=== PATIENT | male | born 1965 | race Hispanic/Latino ===

== ENCOUNTER 2018-05-07 21:03 | Observation (INO) | payer SELFPAY ==
[2018-05-07] MEDS ORDERED: NA CHLORIDE 0.9% 2,000 ML ONE (22:10)
[2018-05-07] MEDS ORDERED: FAMOTIDINE 20 MG/2 ML VIAL IV ONE (22:37)
[2018-05-07] MEDS ORDERED: ONDANSETRON 4 MG/2 ML VIAL ONE (22:37)
--- NOTE | 2018-05-07 22:39 | RAD REPORT ---
EXAM DESCRIPTION: RAD - Chest Single View - 05/07/2018 10:27 pm CLINICAL HISTORY: FEVER Chest pain. COMPARISON: No comparisons FINDINGS: Portable technique limits examination quality. The lungs are grossly clear. The heart is normal in size. No displaced fractures. IMPRESSION: No acute intrathoracic process suspected.
[2018-05-07 22:49] LABS: Absolute Lymphocytes (CBC) 0.6 K/uL (0.7-4.9); Absolute Monocytes 0.9 K/uL (0.1-1.3); Absolute Neutrophil 14.2 K/uL (1.8-8.0); Basophils % 0.1 % (0-1.3); Hematocrit 36.8 % (39.6-49.0); Lymphocytes % 3.8 % (15.3-44.8); MCH 32.2 pg (27.0-35.0); MCV 91.6 fL (80-100); MPV 8.8 fL (7.6-11.3); Monocytes % 5.9 % (3.3-12.3); RBC Red Blood Cell Count 4.02 M/uL (4.33-5.43)
[2018-05-07 22:56] LABS: Protime INR 1.13
[2018-05-07 23:20] LABS: Albumin 4.4 g/dL (3.4-5.0); Bilirubin Direct 0.2 mg/dL (0-0.2); Bilirubin Total 0.9 mg/dL (0.2-1.0); Protein, Total 8.1 g/dL (6.4-8.2)
[2018-05-07 23:31] LABS: C-Reactive Protein 25.7 mg/L (<3.00)
[2018-05-07 23:32] LABS: Potassium 2.8 mmol/L (3.5-5.1)
[2018-05-08 00:03] LABS: Blood Morphology Comment NOT SEEN (NOT SEEN); Platelet Estimate ADEQ; Urine White Blood Cell Casts OK
[2018-05-08] MEDS ORDERED: POTASSIUM 25 MEQ EFFERV TAB ONE (00:14)
[2018-05-08] MEDS ORDERED: KCL 20 MEQ/100 mL IVPB 20 MEQ/100 ML BAG IV ONE (00:14)
[2018-05-08 01:12] LABS: Urine Blood 2+ (NEG); Urine Glucose NEGATIVE (NEG); Urine Protein 1+ (NEG); Urine Specific Gravity 1.015 (1.005-1.030)
[2018-05-08 01:15] LABS: Urine Bacteria <20 /HPF (NONE SEEN); Urine Culture Reflex Order NOT NEEDED; Urine RBC 20-50 /HPF (NONE SEEN)
--- NOTE | 2018-05-08 01:46 | EDPHYS ---
Physician Documentation [facility] Name: Bruno Napoles JR. Age: 52 yrs Sex: Male : 1965 Arrival Date: 05/07/2018 Time: 21:05 Bed 2 Private MD: ED Physician Ian Huerta HPI: 05/07 23:00 This 52 yrs old Male presents to ER via Wheelchair with complaints of Altered cp Mental Status, Nausea/Vomiting, Weakness. 23:00 The patient presents with confusion. cp 23:00 Onset: The symptoms/episode began/occurred today. Possible causes: nausea/vomiting cp times 5 days. Associated signs and symptoms: Pertinent positives: weakness, Pertinent negatives: abdominal pain, chest pain, diaphoresis, diarrhea, headache, vomiting blood. Current symptoms: In the emergency department the patient's symptoms are unchanged from the initial presentation, despite home interventions. Patient's baseline: Neuro: alert and fully oriented, Motor: no deficits, Ambulation: walks without assistance, Speech: normal. Historical: - Allergies: 21:18 No Known Allergies; aj - Home Meds: 21:18 None [Active]; aj - PMHx: 21:18 None; aj - PSHx: 21:18 Right foot; aj - Immunization history:: Adult Immunizations up to date. - Social history:: Smoking status: Patient uses tobacco products, smokes one-half pack cigarettes per day. - Ebola Screening: : Patient negative for fever greater than or equal to 101.5 degrees Fahrenheit, and additional compatible Ebola Virus Disease symptoms Patient denies exposure to infectious person Patient denies travel to an Ebola-affected area in the 21 days before illness onset No symptoms or risks identified at this time. ROS: 23:05 Constitutional: Positive for poor PO intake, Negative for body aches, chills, fever. cp 23:05 Eyes: Negative for injury, pain, redness, and discharge. cp 23:05 ENT: Negative for drainage from ear(s), ear pain, sore throat, difficulty swallowing, cp difficulty handling secretions. 23:05 Cardiovascular: Negative for chest pain, edema, palpitations. 23:05 Respiratory: Negative for cough, shortness of breath, wheezing. 23:05 Abdomen/GI: Positive for nausea and vomiting, anorexia, Negative for abdominal pain, diarrhea, constipation, black/tarry stool, rectal bleeding. 23:05 Back: Negative for pain at rest, pain with movement, radiated pain. 23:05 : Negative for urinary symptoms. 23:05 Skin: Negative for cellulitis, rash. 23:05 Neuro: Positive for general weakness, Negative for altered mental status, dizziness, headache, loss of consciousness, syncope, near syncope. 23:05 All other systems are negative. cp Exam: 22:45 ECG was reviewed by the Attending Physician. cp 23:12 Constitutional: The patient appears in no acute distress, alert, awake, cp non-diaphoretic, non-toxic, well developed, well nourished. 23:12 Head/Face: Normocephalic, atraumatic. Eyes: Pupils equal round and reactive to light, cp extra-ocular motions intact. Lids and lashes normal. Conjunctiva and sclera are non-icteric and not injected. Cornea within normal limits. Periorbital areas with no swelling, redness, or edema. 23:12 ENT: External ear(s): are unremarkable, Ear canal(s): are normal, clear, TM's: dullness, bilaterally, Nose: is normal, Mouth: Lips: dry, Oral mucosa: pink and intact, dry, Posterior pharynx: is normal, airway is patent, no erythema, no exudate. 23:12 Neck: ROM/movement: is normal, is supple, without pain, no range of motions limitations, no meningismus, no nuchal rigidity, Lymph nodes: no appreciated lymphadenopathy. 23:12 Chest/axilla: Inspection: normal, Palpation: is normal, no crepitus, no tenderness. 23:12 Cardiovascular: Rate: normal, Rhythm: regular, Pulses: Pulses are 2+ in right radial artery and left radial artery. Heart sounds: murmur, not appreciated, rub, not appreciated, gallop, not appreciated, Edema: is not appreciated, JVD: is not appreciated. 23:12 Respiratory: the patient does not display signs of respiratory distress, Respirations: normal, no use of accessory muscles, no retractions, no splinting, no tachypnea, labored breathing, is not present, Breath sounds: are clear throughout, no decreased breath sounds, no stridor, no wheezing. 23:12 Abdomen/GI: Inspection: abdomen appears normal, Bowel sounds: active, all quadrants, Palpation: soft, in all quadrants, mild abdominal tenderness, in all quadrants, rebound tenderness, is not appreciated, voluntary guarding, is not appreciated, involuntary guarding, is not appreciated. 23:12 Back: CVA tenderness, is absent. 23:12 Musculoskeletal/extremity: Exam is negative for calf tenderness, decreased range of motion, deformity, injury. 23:12 Skin: cellulitis, is not appreciated, no rash present. 23:12 Neuro: Orientation: to person, place \T\ time. Mentation: lucid, able to follow commands, Cerebellar function: is grossly normal, Motor: moves all fours, strength is normal, Sensation: no obvious gross deficits. Vital Signs: 21:18 BP 119 / 69; Pulse 68; Resp 20; Temp 99.1; Pulse Ox 100% on R/A; Weight 63.5 kg; Height aj 5 ft. 5 in. (165.10 cm); 22:00 BP 138 / 84; Pulse 66; Resp 18; Pulse Ox 97% on R/A; lp1 22:45 BP 129 / 98; Pulse 65; Resp 18; Pulse Ox 100% on R/A; lp1 23:30 BP 122 / 69; Pulse 73; Resp 18; Pulse Ox 99% on R/A; lp1 05/08 00:00 BP 128 / 74; Pulse 76; Resp 20; Pulse Ox 99% on R/A; lp1 00:45 BP 126 / 72; Pulse 71; Resp 16; Pulse Ox 100% on R/A; lp1 01:30 BP 135 / 79; Pulse 65; Resp 14; Temp 99.7(O); Pulse Ox 100% on R/A; lp1 02:15 BP 132 / 80; Pulse 66; Resp 17; Pulse Ox 100% on R/A; lp1 03:04 BP 124 / 80; Pulse 65; Resp 13; Pulse Ox 100% on R/A; lp1 05/07 21:18 Body Mass Index 23.30 (63.50 kg, 165.10 cm) aj MDM: 05/07 22:25 Patient medically screened. cp 05/08 01:35 Data reviewed: vital signs, nurses notes, lab test result(s), EKG, radiologic studies, cp CT scan. 01:35 Test interpretation: by ED physician or midlevel provider: ECG. Response to treatment: cp the patient's symptoms have markedly improved after treatment, VSS. Nausea improved and vomiting resolved, and as a result, I will admit patient, for elevated troponin level and continued monitoring. 01:37 Physician consultation: Gricelda Tapia MD was called at 01:37, was contacted at 01:37, regarding admission, to the telemetry unit. patient's condition. 05/07 22:04 Order name: Amylase, Serum; Complete Time: 23:49 05/07 22:04 Order name: Basic Metabolic Panel; Complete Time: 23:49 05/07 23:49 Interpretation: Normal except: GLUC 127; BUN 19; GFR 89; K 2.8. cp 05/07 22:04 Order name: Blood Culture Adult (2) aa05/07 22:04 Order name: C-Reactive Protein; Complete Time: 23:49 aa05/07 22:04 Order name: CBC with Diff; Complete Time: 01:24 05/07 23:49 Interpretation: Normal except: WBC 15.7; RBC 4.02; HGB 12.9; HCT 36.8; LUCIANO% 90.2; LYM% cp 3.8; NEUT A 14.2; LYMA 0.6. 05/07 22:04 Order name: Ckmb; Complete Time: 23:49 05/07 22:04 Order name: CPK; Complete Time: 23:49 05/07 22:04 Order name: Lactate; Complete Time: 23:49 05/07 22:04 Order name: LFT's; Complete Time: 23:49 05/07 22:04 Order name: Lipase; Complete Time: 23:49 05/07 22:04 Order name: Procalcitonin; Complete Time: 23:49 05/07 23:50 Interpretation: Reviewed. cp 05/07 22:04 Order name: Protime (+inr); Complete Time: 23:49 05/07 22:04 Order name: Ptt, Activated; Complete Time: 23:49 05/07 22:04 Order name: Sed Rate; Complete Time: 01:24 05/07 22:04 Order name: Troponin (emerg Dept Use Only); Complete Time: 23:49 05/07 23:50 Interpretation: Abnormal: TROPED 0.07. cp 05/07 22:04 Order name: Chest Single View XRAY; Complete Time: 23:49 aa1 05/07 22:04 Order name: Cardiac monitoring; Complete Time: 22:30 aa1 05/07 23:02 Order name: CT Abd/Pelvis - W/Contrast: no oral contrast cp 05/07 23:51 Order name: Urine Microscopic Only; Complete Time: 01:24 cp 05/08 01:24 Interpretation: Normal except: URBC 20-50. cp 05/08 00:06 Order name: CBC Smear Scan EDMS 05/08 00:27 Order name: Urine Dipstick--Ancillary (enter results); Complete Time: 01:24 ms 05/08 01:24 Interpretation: Normal except: UKET 3+; UBLD 2+; UPROT 1+. cp 05/07 22:04 Order name: EKG - Nurse/Tech; Complete Time: 22:46 aa1 05/07 22:04 Order name: IV Saline Lock - Large Bore; Complete Time: 22:18 aa1 05/07 22:04 Order name: Labs collected and sent; Complete Time: 22:18 aa1 05/07 22:04 Order name: O2 Per Protocol; Complete Time: 22:18 aa1 05/07 22:04 Order name: O2 Sat Monitoring; Complete Time: 22:18 aa1 05/07 22:04 Order name: Urine Dipstick-Ancillary (obtain specimen); Complete Time: 00:29 aa1 EC/16 22:45 Rate is 61 beats/min. Rhythm is regular. KS interval is normal. QRS interval is normal. cp QT interval is normal. Interpreted by me. Reviewed by me. Administered Medications: 22:17 Drug: NS 0.9% (30 ml/kg) 30 ml/kg Route: IV; Rate: bolus; Site: left forearm; aj 22:40 Drug: Zofran 4 mg Route: IVP; Site: left forearm; lp1 23:00 Follow up: Response: Nausea is decreased lp1 22:40 Drug: Pepcid 20 mg Route: IVP; Site: left forearm; lp1 23:00 Follow up: Response: No adverse reaction lp1 23:30 Drug: NS 0.9% (30 ml/kg) 30 ml/kg Route: IV; Rate: bolus; Site: left forearm; lp1 05/08 02:12 Follow up: IV Status: Completed infusion; IV Intake: 2000ml lp1 00:23 Drug: Potassium Chloride 20 mEq Route: IV; Rate: calculated rate; Site: left forearm; lp1 02:13 Follow up: IV Status: Completed infusion; IV Intake: 100ml lp1 00:28 Drug: Potassium Effervescent Tablet 50 mEq Route: PO; lp1 00:32 Follow up: Patient unable to tolerate PO, vomited, Provider aware lp1 01:58 Drug: Aspirin Chewable Tablet 324 mg Route: PO; lp1 03:05 Follow up: Response: No adverse reaction lp1 01:58 Drug: Lovenox 40 mg Route: Sub-Q; Site: left lower abdomen; lp1 03:06 Follow up: Response: No adverse reaction lp1 Disposition: 07:27 Co-signature as Attending Physician, Ian Huerta MD I agree with the assessment and ervin plan of care. Disposition: 05/08/18 01:45 Hospitalization ordered by Gricelda Tapia for Observation. Preliminary diagnosis are Nausea and vomiting, Hypokalemia. - Bed requested for Telemetry/MedSurg (observation). - Status is Observation. lp1 - Condition is Stable. - Problem is new. - Symptoms have improved. UTI on Admission? No Signatures: Dispatcher [employer] EDMS Corie Dominguez RN RN mw Kern, Alissa RN RN [email or web address] Thuy Clark RN Ian Acosta MD MD cha Pena, Laura RN YARELI lp1 Ian Esqueda PA PA cp Corrections: (The following items were deleted from the chart) 05/07 22:48 22:04 Accucheck ordered. aa1 cc 05/08 00:24 05/07 23:51 [place] ordered. cp lp1 05/08 01:46 01:45 Hospitalization Ordered by Gricelda Tapia MD for Observation. Preliminary cp diagnosis is Nausea and vomiting; Hypokalemia. Bed requested for Telemetry/MedSurg (observation). Status is Observation. Condition is Stable. Problem is new. Symptoms have improved. UTI on Admission? No. cp 01:50 01:46 05/08/2018 01:45 Hospitalization Ordered by Gricelda Tapia MD for Observation. bushra Preliminary diagnosis is Nausea and vomiting; Hypokalemia. Bed requested for Telemetry/MedSurg (observation). Status is Observation. Condition is Stable. Problem is new. Symptoms have improved. UTI on Admission? No. cp 03:17 01:50 05/08/2018 01:45 Hospitalization Ordered by Gricelda Tapia MD for Observation. lp1 Preliminary diagnosis is Nausea and vomiting; Hypokalemia. Bed requested for Telemetry/MedSurg (observation). Status is Observation. Condition is Stable. Problem is new. Symptoms have improved. UTI on Admission? No. mw 05/09 02:06 05/08 23:05 Constitutional: Negative for body aches, chills, fever, poor PO intake, cp cp 05/09 02:06 05/08 23:05 Eyes: Negative for injury, pain, redness, and discharge, cp cp 05/09 02:06 05/08 23:05 ENT: Negative for drainage from ear(s), ear pain, sore throat, difficulty cp swallowing, difficulty handling secretions, cp 05/09 02:06 05/08 23:05 Cardiovascular: Negative for chest pain, edema, palpitations, cp cp 05/09 02:06 05/08 23:05 Respiratory: Negative for cough, shortness of breath, wheezing, cp cp 05/09 02:06 05/08 23:05 Neck: Negative for pain with movement, stiffness, cp cp 05/09 02:06 05/08 23:05 Abdomen/GI: Positive for nausea, vomiting, anorexia, Negative for abdominal cp pain, diarrhea, constipation, black/tarry stool, rectal bleeding, cp 05/09 02:06 05/08 23:05 Back: Negative for pain at rest, pain with movement, radiated pain, cp cp 05/09 02:06 05/08 23:05 : Negative for urinary symptoms, cp cp 05/09 02:06 05/08 23:05 MS/extremity: Negative for injury or acute deformity, decreased range of cp motion, paresthesias, cp 05/09 02:06 05/08 23:05 Neuro: Positive for general weakness, Negative for altered mental status, cp headache, seizure activity, speech changes, syncope, near syncope, visual changes, cp 05/09 02:06 05/08 23:05 All other systems are negative, cp cp
--- NOTE | 2018-05-08 01:46 | ER ---
Nurse's Notes [facility] Name: Bruno Napoles JR. Age: 52 yrs Sex: Male : 1965 Arrival Date: 05/07/2018 Time: 21:05 Bed 2 Private MD: Diagnosis: Nausea and vomiting;Hypokalemia Presentation: 05/07 21:16 Presenting complaint: Patient states: Reports N/V since Friday. Reports aj disorientation. Awake and alert to person, place and time. Transition of care: patient was not received from another setting of care. Onset of symptoms was May 04, 2018. Risk Assessment: Do you want to hurt yourself or someone else? Patient reports no desire to harm self or others. Initial Sepsis Screen: Does the patient meet any 2 criteria? No. Patient's initial sepsis screen is negative. Does the patient have a suspected source of infection? No. Patient's initial sepsis screen is negative. Care prior to arrival: None. 21:16 Method Of Arrival: Wheelchair aj 21:16 Acuity: SHEA 3 aj Triage Assessment: 21:18 General: Appears in no apparent distress. comfortable, Behavior is calm, cooperative, aj appropriate for age. Pain: Denies pain. Neuro: Level of Consciousness is awake, alert, obeys commands, Oriented to person, place, time, situation, Moves all extremities. Weakness Speech is normal, Facial symmetry appears normal, Intact. Respiratory: Airway is patent Respiratory effort is even, unlabored, Respiratory pattern is regular, symmetrical. GI: Reports nausea, vomiting. Derm: Skin is intact, is healthy with good turgor, Skin is pink, warm \T\ dry. normal. Historical: - Allergies: 21:18 No Known Allergies; aj - Home Meds: 21:18 None [Active]; aj - PMHx: 21:18 None; aj - PSHx: 21:18 Right foot; aj - Immunization history:: Adult Immunizations up to date. - Social history:: Smoking status: Patient uses tobacco products, smokes one-half pack cigarettes per day. - Ebola Screening: : Patient negative for fever greater than or equal to 101.5 degrees Fahrenheit, and additional compatible Ebola Virus Disease symptoms Patient denies exposure to infectious person Patient denies travel to an Ebola-affected area in the 21 days before illness onset No symptoms or risks identified at this time. Screenin:54 Abuse screen: Denies threats or abuse. Denies injuries from another. Nutritional lp1 screening: No deficits noted. Tuberculosis screening: No symptoms or risk factors identified. Fall Risk None identified. Assessment: 22:00 General: Appears uncomfortable, slender, Behavior is restless. Pain: Denies pain. lp1 Neuro: Level of Consciousness is awake, alert, obeys commands, Oriented to person, place, situation. Cardiovascular: Patient's skin is warm and dry. Respiratory: Respiratory effort is even, Respiratory pattern is regular, Breath sounds are clear bilaterally. GI: Abdomen is flat, Pt is actively vomiting clear fluid, Bowel sounds present X 4 quads. Reports nausea, vomiting, Patient currently denies constipation, diarrhea. : No signs and/or symptoms were reported regarding the genitourinary system. EENT: No signs and/or symptoms were reported regarding the EENT system. Derm: Skin is intact, Skin is dry, Skin is normal. Musculoskeletal: Circulation, motion, and sensation intact. 23:00 Reassessment: Nausea decreased at this time Patient states feeling better. lp1 05/08 00:00 Reassessment: Patient appears in no apparent distress at this time. No changes from lp1 previously documented assessment. Patient is alert, oriented x 3, equal unlabored respirations, skin warm/dry/pink. 01:00 Reassessment: Patient appears in no apparent distress at this time. Patient is alert, lp1 oriented x 3, equal unlabored respirations, skin warm/dry/pink. Patient resting, eyes closed, respirations unlabored. 02:00 Reassessment: Patient is alert, oriented x 3, equal unlabored respirations, skin lp1 warm/dry/pink. Patient states feeling better. Patient states symptoms have improved. Vital Signs: 05/07 21:18 BP 119 / 69; Pulse 68; Resp 20; Temp 99.1; Pulse Ox 100% on R/A; Weight 63.5 kg; Height aj 5 ft. 5 in. (165.10 cm); 22:00 BP 138 / 84; Pulse 66; Resp 18; Pulse Ox 97% on R/A; lp1 22:45 BP 129 / 98; Pulse 65; Resp 18; Pulse Ox 100% on R/A; lp1 23:30 BP 122 / 69; Pulse 73; Resp 18; Pulse Ox 99% on R/A; lp1 05/08 00:00 BP 128 / 74; Pulse 76; Resp 20; Pulse Ox 99% on R/A; lp1 00:45 BP 126 / 72; Pulse 71; Resp 16; Pulse Ox 100% on R/A; lp1 01:30 BP 135 / 79; Pulse 65; Resp 14; Temp 99.7(O); Pulse Ox 100% on R/A; lp1 02:15 BP 132 / 80; Pulse 66; Resp 17; Pulse Ox 100% on R/A; lp1 03:04 BP 124 / 80; Pulse 65; Resp 13; Pulse Ox 100% on R/A; lp1 05/07 21:18 Body Mass Index 23.30 (63.50 kg, 165.10 cm) aj ED Course: 05/07 21:05 Patient arrived in ED. ds1 21:18 Triage completed. aj 21:18 Arm band placed on right wrist. Patient placed in an exam room. aj 22:05 Inserted saline lock: 20 gauge in right forearm, using aseptic technique. Blood cc collected. 22:19 Inserted saline lock: 20 gauge in left forearm, using aseptic technique. Blood aj collected. 22:25 X-ray completed. Portable x-ray completed in exam room. Patient tolerated procedure bb2 well. 22:25 Ian Esqueda PA is PHCP. cp 22:25 Ian Huerta MD is Attending Physician. cp 22:26 Chest Single View XRAY In Process Unspecified. EDMS 22:29 Lien Hahn, YARELI is Primary Nurse. lp1 22:50 EKG done, by ED staff, reviewed by Ian OSORIO. lp1 22:55 Patient has correct armband on for positive identification. Placed in gown. Bed in low lp1 position. Side rails up X2. conveyor monitor on. Pulse ox on. NIBP on. 23:51 CT Abd/Pelvis - W/Contrast: no oral contrast In Process Unspecified. EDMS 23:58 CT completed. Patient tolerated procedure well. Patient moved to CT via stretcher. Patient moved back from CT. 05/08 00:24 Urine collected: clean catch specimen, clear. lp1 01:44 Gricelda Tapia MD is Hospitalizing Provider. cp 02:08 No provider procedures requiring assistance completed. Patient admitted, IV remains in lp1 place. Administered Medications: 05/07 22:17 Drug: NS 0.9% (30 ml/kg) 30 ml/kg Route: IV; Rate: bolus; Site: left forearm; aj 22:40 Drug: Zofran 4 mg Route: IVP; Site: left forearm; lp1 23:00 Follow up: Response: Nausea is decreased lp1 22:40 Drug: Pepcid 20 mg Route: IVP; Site: left forearm; lp1 23:00 Follow up: Response: No adverse reaction lp1 23:30 Drug: NS 0.9% (30 ml/kg) 30 ml/kg Route: IV; Rate: bolus; Site: left forearm; lp1 05/08 02:12 Follow up: IV Status: Completed infusion; IV Intake: 2000ml lp1 00:23 Drug: Potassium Chloride 20 mEq Route: IV; Rate: calculated rate; Site: left forearm; lp1 02:13 Follow up: IV Status: Completed infusion; IV Intake: 100ml lp1 00:28 Drug: Potassium Effervescent Tablet 50 mEq Route: PO; lp1 00:32 Follow up: Patient unable to tolerate PO, vomited, Provider aware lp1 01:58 Drug: Aspirin Chewable Tablet 324 mg Route: PO; lp1 03:05 Follow up: Response: No adverse reaction lp1 01:58 Drug: Lovenox 40 mg Route: Sub-Q; Site: left lower abdomen; lp1 03:06 Follow up: Response: No adverse reaction lp1 Intake: 05/07 23:30 IV: 1000ml (IV Fluid); Total: 1000ml. lp1 05/08 02:12 IV: 2000ml; Total: 3000ml. lp1 02:13 IV: 100ml; Total: 3100ml. lp1 Output: 00:24 Urine: 300ml (Voided); Total: 300ml. lp1 Outcome: 01:45 Decision to Hospitalize by Provider. cp 02:08 Condition: stable lp1 02:08 Instructed on the need for admit. 03:03 Admitted to Med/surg via wheelchair, room 231, with chart, Report called to yoel Martinez RN 03:17 Patient left the ED. lp1 Signatures: Dispatcher [employer] EDThuy Gallagher RN Juan Flor Demi dsXimena Rodriguez cc Lien Hahn RN RN lp1 Ian Esqueda PA PA cp Bock, Brittany bb2 Corrections: (The following items were deleted from the chart) 05/07 22:59 22:58 Inserted saline lock: 20 gauge in right forearm, using aseptic technique. Blood cc collected. cc 05/08 03:04 01:30 BP 135 / 79; Pulse 65bpm; Resp 14bpm; Pulse Ox 100% RA; lp1 lp1
[2018-05-08] MEDS ORDERED: ENOXAPARIN 40 MG/0.4 ML SQ ONE (01:47)
[2018-05-08] MEDS ORDERED: ASPIRIN 81 MG CHEWABLE TABLET ONE (01:47)
[2018-05-08] MEDS ORDERED: ACETAMINOPHEN 500 MG TAB PO PRN (02:38)
[2018-05-08] MEDS ORDERED: MORPHINE 2 MG/ML SYR IV PRN (02:38)
[2018-05-08] MEDS: NA CHLORIDE 0.9% 1,000 ML IV SCH ×4 (03:34→23:00)
[2018-05-08 06:20] LABS: Absolute Lymphocytes (CBC) 0.6 K/uL (0.7-4.9); Absolute Monocytes 1.1 K/uL (0.1-1.3); Absolute Neutrophil 15.4 K/uL (1.8-8.0); Basophils % 0.2 % (0-1.3); Hematocrit 33.6 % (39.6-49.0); Lymphocytes % 3.7 % (15.3-44.8); MCV 92.5 fL (80-100); MPV 8.6 fL (7.6-11.3); Monocytes % 6.5 % (3.3-12.3); RBC Red Blood Cell Count 3.63 M/uL (4.33-5.43)
[2018-05-08 06:40] LABS: BUN Blood Urea Nitrogen 15 mg/dL (7-18); Bicarbonate 27 mmol/L (21-32); Glucose Level 125 mg/dL (74-106); Potassium 3.1 mmol/L (3.5-5.1); Sodium Level 142 mmol/L (136-145)
[2018-05-08] MEDS ORDERED: SODIUM CHLORIDE 0.9% 10ML INJ IV PRN (07:09)
[2018-05-08] MEDS ORDERED: POTASSIUM CL 40 MEQ in NA CHLORIDE 0.9% 500 ML IV SCH (08:00)
--- NOTE | 2018-05-08 08:01 | RAD REPORT ---
EXAM DESCRIPTION: CTAbdomen Pelvis W Contrast - 05/08/2018 3:45 am CLINICAL HISTORY: Abdominal pain. n/v COMPARISON: No comparisons TECHNIQUE: Biphasic CT imaging of the abdomen and pelvis was performed with 100 ml non-ionic IV cont rast. All CT scans are performed using dose optimization technique as appropriate and may include automated exposure control or mA/KV adjustment according to patient size. FINDINGS: The lung bases are clear. The liver, spleen, pancreas, adrenal glands and right kidney are within normal limits. Mild prominenc e of the left renal pelvis probably due to crossing vessel the level of the left UPJ. No bowel obstruction, free air, free fluid or abscess. The appendix is normal. No evidence of signi ficant lymphadenopathy. No suspicious bony findings. Small fat containing left inguinal hernia. IMPRESSION: No acute intra-abdominal or pelvic finding.
[2018-05-08] MEDS: ONDANSETRON 4 MG/2 ML VIAL IV PRN ×2 (08:16→12:04)
[2018-05-08] MEDS: PANTOPRAZOLE 40 MG INJ IVP SCH ×3 (08:17→21:13)
[2018-05-08] MEDS: KCL 20 MEQ/100 mL IVPB 20 MEQ/100 ML BAG IV SCH ×2 (08:20→12:00)
--- NOTE | 2018-05-08 13:49 | P.HP ---
Certification for Inpatient Patient admitted to: Observation With expected LOS: <2 Midnights Patient will require the following post-hospital care: None Practitioner: I am a practitioner with admitting privileges, knowledge of patient current condition, hospital course, and medical plan of care. Services: Services provided to patient in accordance with Admission requirements found in Title 42 Section 412.3 of the Code of Federal Regulations Patient History Date of Service: 05/08/18 Reason for admission: intractable nausea and vomiting History of Present Illness: Patient is a 52-year-old gentleman who came into the hospital with intractable nausea and vomiting. Patient has been having weakness and vomiting for the last 24 hr. He has been feeling weak and fatigued. In the emergency room he was found to have significant hypokalemia. He was having some abdominal pain. However he is currently feeling much better. He denies any diarrhea. The symptoms just started over the last 24 hr. He has been given aggressive IV hydration and antiemetics in the E R. He is slightly lethargic. He will be admitted to the hospital for further evaluation. Allergies No Known Allergies Allergy (Verified 05/08/18 02:06) Home Medications: Multivit,Ther Iron,Ca,FA & Min [Centrum Tablet*] 1 tab PO DAILY 05/08/18 - Past Medical/Surgical History Has patient received pneumonia vaccine in the past: No Diabetic: No Past Medical History: Patient denies medical history Past Surgical History: Patient denies surgical history - Family History Father Family History: Reviewed- Non-Contributory - Social History Smoking Status: Former smoker Alcohol use: No CD- Drugs: No Caffeine use: Yes Place of Residence: Home Review of Systems 10-point ROS is otherwise unremarkable Physical Examination - Vital Signs Temperature: 99.1 F Blood Pressure: 133/64 Pulse: 56 Respirations: 16 Pulse Ox (%): 99 - Physical Exam General: Alert, In no apparent distress, Oriented x3 HEENT: Atraumatic, PERRLA, Mucous membr. moist/pink, EOMI, Sclerae nonicteric Neck: Supple, 2+ carotid pulse no bruit, No LAD, Without JVD or thyroid abnormality Respiratory: Clear to auscultation bilaterally, Normal air movement Cardiovascular: Regular rate/rhythm, Normal S1 S2, No murmurs Gastrointestinal: Normal bowel sounds, Soft and benign, Non-distended, No tenderness Musculoskeletal: No clubbing, No swelling, No tenderness Integumentary: No rashes Neurological: Normal gait, Normal speech, Normal strength at 5/5 x4 extr, Normal tone, Sensation intact, Cranial nerves 3-12 intact, Normal affect Lymphatics: No axilla or inguinal lymphadenopathy - Studies Laboratory Data (last 24 hrs) 05/07/18 22:15: PT 13.4 H, INR 1.13, APTT 33.2 05/07/18 22:15: WBC 15.7 H, Hgb 12.9 L, Hct 36.8 L, Plt Count 308 05/07/18 22:15: Sodium 140, Potassium 2.8 L*, BUN 19 H, Creatinine 0.90, Glucose 127 H, Total Bilirubin 0.9, AST 24, ALT 37, Alkaline Phosphatase 60, Amylase 83, Lipase 65 L Assessment & Plan - Problems (Diagnosis) (1) Abdominal pain Current Visit: Yes Status: Acute (2) Intractable nausea and vomiting Current Visit: Yes Status: Acute (3) Hypokalemia Current Visit: Yes Status: Acute - Plan Plan: 1. IV hydration 2. Antiemetics as needed 3. Advance diet if tolerated 4. Out of bed and ambulate 5. possible discharge home if symptoms resolve. He could have had a viral gastroenteritis that causes symptoms which are improved. At this time patient is clinically doing much better and possible discharge home in 24 hr. - Advance Directives Does patient have a Living Will: No Does patient have a Durable POA for Healthcare: No - Code Status/Comfort Care Code Status Assessed: Yes Code Status: Full Code Critical Care: No Time Spent Managing PTS Care (In Minutes): 50
--- NOTE | 2018-05-08 17:15 | EKG ---
Test Date: 2018-05-07 Test Time: 22:39:58 Supervisor [employer]: JAMEEL MEASUREMENT RESULTS: Intervals: Rate: 61 ID: [id number] QRSD: 80 QT: 456 QTc: 459 [place]: P: 41 ID: [id number] QRS: 69 T: 31 INTERPRETIVE STATEMENTS: Sinus rhythm with short ID Otherwise normal ECG No previous ECG available for comparison Electronically Signed On 05-08-18 17:11:25 CDT by Thierry Hill
[2018-05-08 17:16] LABS: Barbiturates NEGATIVE (NEGATIVE); Benzodiazepines NEGATIVE (NEGATIVE); Cocaine NEGATIVE (NEGATIVE); METHAMPHETAM NEGATIVE (NEGATIVE); Methadone POSITIVE (NEGATIVE); Opiates NEGATIVE (NEGATIVE); Phencyclidine NEGATIVE (NEGATIVE); THC Cannibis POSITIVE (NEGATIVE)
[2018-05-08] MEDS: NYSTATIN 500,000 UNIT/5 ML UDC PO SCH (21:14)
[2018-05-09 05:36] LABS: Absolute Lymphocytes (CBC) 0.8 K/uL (0.7-4.9); Absolute Monocytes 0.9 K/uL (0.1-1.3); Basophils % 0.1 % (0-1.3); Eosinophils % 0.1 % (0-4.4); Hematocrit 31.4 % (39.6-49.0); Lymphocytes % 7.1 % (15.3-44.8); MCH 32.5 pg (27.0-35.0); MCV 92.5 fL (80-100); MPV 8.6 fL (7.6-11.3); Monocytes % 7.6 % (3.3-12.3)
[2018-05-09 05:54] LABS: ALT/SGPT 49 U/L (12-78); AST/SGOT 26 U/L (15-37); Albumin 3.4 g/dL (3.4-5.0); Alkaline Phosphatase 48 U/L (45-117); BUN Blood Urea Nitrogen 11 mg/dL (7-18); Bicarbonate 26 mmol/L (21-32); Bilirubin Total 0.5 mg/dL (0.2-1.0); Glucose Level 102 mg/dL (74-106); Protein, Total 6.3 g/dL (6.4-8.2); Sodium Level 139 mmol/L (136-145)
[2018-05-09 06:20] LABS: Blood Morphology Comment NOT SEEN (NOT SEEN); Platelet Estimate ADEQ; Urine White Blood Cell Casts OK
[2018-05-09] MEDS: NA CHLORIDE 0.9% 1,000 ML IV SCH ×2 (06:57→17:57)
[2018-05-09] MEDS: METHADONE HCL 10 MG TAB PO SCH (08:30)
[2018-05-09] MEDS: PANTOPRAZOLE 40 MG INJ IVP SCH ×2 (08:31→20:55)
[2018-05-09] MEDS: NYSTATIN 500,000 UNIT/5 ML UDC PO SCH ×2 (08:31→20:55)
--- NOTE | 2018-05-09 15:15 | P.PN ---
Subjective Date of Service: 05/09/18 Chief Complaint: intractable nausea and vomiting Subjective: No C/O voiced, Tolerating diet, Ambulating, Improving, Working w/ PT , Doing well Review of Systems General: As per HPI Physical Examination - Vital Signs Temperature: 99.1 F Blood Pressure: 149/78 Pulse: 52 Respirations: 18 Pulse Ox (%): 97 - Physical Exam General: Alert, In no apparent distress HEENT: Atraumatic, PERRLA, EOMI Neck: Supple, JVD not distended Respiratory: Clear to auscultation bilaterally, Normal air movement Cardiovascular: Regular rate/rhythm, Normal S1 S2 Gastrointestinal: Normal bowel sounds, No tenderness Musculoskeletal: No tenderness Integumentary: No rashes Neurological: Normal speech, Normal tone, Normal affect Lymphatics: No axilla or inguinal lymphadenopathy - Studies Medications List Reviewed: Yes Assessment & Plan - Problems (Diagnosis) (1) Viral gastroenteritis Current Visit: Yes Status: Acute Plan: Viral Gastroenteritis causing N/V -IV fluids for now -Improving today -Elevated ESR and CRP - HIV negative, Hepatitis Pending -WBC trending down (2) Hypokalemia Current Visit: Yes Status: Acute Plan: Hypokalemia 2.2 to N/V -Replace per protocol (3) Intractable nausea and vomiting Current Visit: Yes Status: Acute Plan: Improving but still nauseous. 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
[2018-05-10] MEDS: NA CHLORIDE 0.9% 1,000 ML IV SCH (01:35)
[2018-05-10] MEDS: NYSTATIN 500,000 UNIT/5 ML UDC PO SCH (09:33)
[2018-05-10] MEDS: METHADONE HCL 10 MG TAB PO SCH (09:34)
[2018-05-10] MEDS: PANTOPRAZOLE 40 MG INJ IVP SCH (09:34)
--- NOTE | 2018-05-10 12:09 | P.DS ---
Admission Date: 05/08/18 Discharge Date: 05/10/18 Disposition: ROUTINE DISCHARGE Discharge Condition: GOOD Reason for Admission: intractable nausea and vomiting - Problems (1) Viral gastroenteritis Current Visit: Yes Status: Acute (2) Hypokalemia Current Visit: Yes Status: Acute (3) Intractable nausea and vomiting Current Visit: Yes Status: Acute Qualifiers: Vomiting type: unspecified Qualified Code(s): R11.2 - Nausea with vomiting , unspecified (4) Drug abuse Current Visit: Yes Status: Acute Brief History of Present Illness: Patient is a 52-year-old gentleman who came into the hospital with intractable nausea and vomiting. Patient has been having weakness and vomiting for the last 24 hr. He has been feeling weak and fatigued. In the emergency room he was found to have significant hypokalemia. He was having some abdominal pain. However he is currently feeling much better. He denies any diarrhea. The symptoms just started over the last 24 hr. He has been given aggressive IV hydration and antiemetics in the E R. He is slightly lethargic. He will be admitted to the hospital for further evaluation. Hospital Course: Overall renal status remained stable The patient initially admitted to the hospital for nausea vomiting and abdominal pain was found to have viral gastroenteritis. Patient was kept on IV fluids and IV Zofran here in the hospital. Had marked improvement in his symptoms. Patient is also had a UDS done here in the hospital which was positive for methadone and THC. Patient methadone dose was restarted here in the hospital. Patient was educated extensively on smoking marijuana and having abstinence from it. Patient was then discharged home under stable condition once he was able to ambulate and tolerate his diet. Patient's nausea vomiting abdominal pain was most likely secondary to viral gastroenteritis versus THC use. Patient was notified of this and educated extensively on THC abstinence and agreed with the plan and thus was discharged home under stable condition. Vital Signs/Physical Exam: Temp Pulse Resp BP Pulse Ox 99.6 F 56 17 148/79 H 96 05/10/18 08:00 05/10/18 08:00 05/10/18 08:00 05/10/18 08:00 05/10/18 08:00 General: Alert, In no apparent distress HEENT: Atraumatic, PERRLA, EOMI Neck: Supple, JVD not distended Respiratory: Clear to auscultation bilaterally, Normal air movement Cardiovascular: Regular rate/rhythm, Normal S1 S2 Gastrointestinal: Normal bowel sounds, No tenderness Musculoskeletal: No tenderness Integumentary: No rashes Neurological: Normal speech, Normal tone, Normal affect Lymphatics: No axilla or inguinal lymphadenopathy Laboratory Data at Discharge: WBC 11.8 K/uL (4.3-10.9) H D 05/09/18 05:00 Hgb 11.1 g/dL (13.6-17.9) L 05/09/18 05:00 Hct 31.4 % (39.6-49.0) L 05/09/18 05:00 Plt Count 221 K/uL (152-406) 05/09/18 05:00 PT 13.4 SECONDS (9.5-12.5) H 05/07/18 22:15 INR 1.13 05/07/18 22:15 APTT 33.2 SECONDS (24.3-36.9) 05/07/18 22:15 Sodium 139 mmol/L (136-145) 05/09/18 05:00 Potassium 3.0 mmol/L (3.5-5.1) L 05/09/18 05:00 BUN 11 mg/dL (7-18) 05/09/18 05:00 Creatinine 0.60 mg/dL (0.55-1.3) 05/09/18 05:00 Glucose 102 mg/dL (74-106) 05/09/18 05:00 Total Bilirubin 0.5 mg/dL (0.2-1.0) 05/09/18 05:00 AST 26 U/L (15-37) 05/09/18 05:00 ALT 49 U/L (12-78) 05/09/18 05:00 Alkaline Phosphatase 48 U/L (45-117) 05/09/18 05:00 Troponin I 0.02 ng/mL (0.0-0.045) 05/09/18 07:03 Amylase 83 U/L (25-115) 05/07/18 22:15 Lipase 65 U/L (73-393) L 05/07/18 22:15 Home Medications: Multivit,Ther Iron,Ca,FA & Min [Centrum Tablet*] 1 tab PO DAILY 05/08/18 Patient Discharge Instructions: Please f.u with PCP in 1 to 2 weeks post discharge Diet: Regular Activity: Ad gerri
[2018-05-10 19:32] LABS: HBsAG Nonreactive (Nonreactive); Hepatitis A IgM Antibody Nonreactive
--- NOTE | 2018-05-11 07:55 | ECHO ---
HEIGHT: 5 ft 5 in WEIGHT: 121 lb 3.2 oz DATE OF STUDY: 05/08/[address]: Gricelda Tapia MD 2-DIMENSIONAL: YES M.MODE: YES DOPPLER: YES COLOR FLOW: YES TDS: NO PORTABLE: NO DEFINITY: NO BUBBLE STUDY: NO DIAGNOSIS: ELEVATED TROPONIN CARDIAC HISTORY: CATHERIZATION: NO SURGERY: NO PROSTHETIC VALVE: NO PACEMAKER: NO MEASUREMENTS (cm) DIASTOLIC (NORMALS) SYSTOLIC (NORMALS) IVSd 0.8 (0.6-1.2) LA Diam 3.7 (1.9-4.0) LVEF 62% LVIDd 3.8 (3.5-5.7) LVIDs 2.6 (2.0-3.5) %FS 33% LVPWd 0.8 (0.6-1.2) Ao Diam 2.8 (2.0-3.7) 2 DIMENSIONAL ASSESSMENT: RIGHT ATRIUM: NORMAL LEFT ATRIUM: NORMAL RIGHT VENTRICLE: NORMAL LEFT VENTRICLE: NORMAL TRICUSPID VALVE: NORMAL MITRAL VALVE: NORMAL PULMONIC VALVE: NORMAL AORTIC VALVE: NORMAL PERICARDIAL EFFUSION: NONE AORTIC ROOT: NORMAL LEFT VENTRICULAR WALL MOTION: NORMAL DOPPLER/COLOR FLOW: NORMAL COMMENTS: NORMAL 2D ECHOCARDIOGRAM WITH DOPPLER. NO WALL MOTION ABNORMALITY. NO EFFUSION. TECHNOLOGIST: Sally JACKSON
== END 2018-05-10 15:39 | disposition home or self-care (01) ==
LOC: ER 21:03 → ERHOLD 05-08 02:22 → 2ND 05-08 03:04
PROVIDERS: ADMIT Hospitalist; ATTEND Hospitalist
DX: A08.4 Viral intestinal infection, unspecified (principal); E87.6 Hypokalemia; F12.10 Cannabis abuse, uncomplicated
CPT/HCPCS: 36415; 71045; 74177; 80048; 80053; 80074; 80076; 80307; 81003; 81015; 82150; 82550; 82553; 83605; 83690; 84145; 84484; 85025; 85610; 85652; 85730; 86140; 87040; 87205; 93005; 93306; 96365; 96366; 96372; 96375; 99285; C9113; G0378; G0433; J1650; J2270; J2405; J7030; Q9967

== ENCOUNTER 2018-11-09 10:59 | Emergency (ER) | payer SELFPAY ==
[2018-11-09 12:30] LABS: Absolute Lymphocytes (CBC) 0.6 K/uL (0.7-4.9); Absolute Monocytes 1.1 K/uL (0.1-1.3); Absolute Neutrophil 20.1 K/uL (1.8-8.0); Basophils % 0.2 % (0-1.3); Hematocrit 43.2 % (39.6-49.0); MPV 8.2 fL (7.6-11.3); RBC Red Blood Cell Count 4.84 M/uL (4.33-5.43)
[2018-11-09] MEDS ORDERED: ONDANSETRON 4 MG/2 ML VIAL ONE (12:46)
[2018-11-09] MEDS ORDERED: NA CHLORIDE 0.9% 1,000 ML ONE ×2 (12:47→14:06)
[2018-11-09 12:54] LABS: Blood Morphology Comment NOT SEEN (NOT SEEN); Platelet Estimate ADEQ; Urine White Blood Cell Casts OK
[2018-11-09 14:05] LABS: Albumin 4.6 g/dL (3.4-5.0); Bilirubin Direct 0.2 mg/dL (0-0.2); Bilirubin Total 0.4 mg/dL (0.2-1.0); Potassium 3.6 mmol/L (3.5-5.1); Protein, Total 8.1 g/dL (6.4-8.2)
--- NOTE | 2018-11-09 14:31 | EDPHYS ---
Physician Documentation [facility] Name: Bruno Napoles JR. Age: 52 yrs Sex: Male : 1965 Arrival Date: 11/09/2018 Time: 11:00 Bed 15 Private MD: None, None ED Physician Alfred Farrell HPI: 11/09 16:45 This 52 yrs old Male presents to ER via Ambulatory with complaints of Vomiting.gs 16:45 Onset: The symptoms/episode began/occurred 2 day(s) ago. Possible causes: unknown. The gs symptoms are aggravated by nothing. The symptoms are alleviated by nothing. Associated signs and symptoms: Pertinent negatives: abdominal pain, fever, GI bleeding. Severity of symptoms: At their worst the symptoms were severe in the emergency department the symptoms have improved markedly. The patient has experienced similar episodes in the past, a few times. The patient has not recently seen a physician. Historical: - Allergies: 11:33 No Known Allergies; aa5 - PMHx: 11:33 None; aa5 - PSHx: 11:33 Right foot; aa5 - Immunization history:: Flu vaccine is not up to date. - Social history:: Smoking status: Patient/guardian denies using tobacco. - Ebola Screening: : No symptoms or risks identified at this time. ROS: 16:45 All other systems are negative. gs Exam: 16:45 Head/Face: Normocephalic, atraumatic. Eyes: Pupils equal round and reactive to light, gs extra-ocular motions intact. Lids and lashes normal. Conjunctiva and sclera are non-icteric and not injected. Cornea within normal limits. Periorbital areas with no swelling, redness, or edema. ENT: Nares patent. No nasal discharge, no septal abnormalities noted. Tympanic membranes are normal and external auditory canals are clear. Oropharynx with no redness, swelling, or masses, exudates, or evidence of obstruction, uvula midline. Mucous membranes moist. Neck: Trachea midline, no thyromegaly or masses palpated, and no cervical lymphadenopathy. Supple, full range of motion without nuchal rigidity, or vertebral point tenderness. No Meningismus. Chest/axilla: Normal chest wall appearance and motion. Nontender with no deformity. No lesions are appreciated. Cardiovascular: Regular rate and rhythm with a normal S1 and S2. No gallops, murmurs, or rubs. Normal PMI, no JVD. No pulse deficits. Respiratory: Lungs have equal breath sounds bilaterally, clear to auscultation and percussion. No rales, rhonchi or wheezes noted. No increased work of breathing, no retractions or nasal flaring. Abdomen/GI: Soft, non-tender, with normal bowel sounds. No distension or tympany. No guarding or rebound. No evidence of tenderness throughout. Back: No spinal tenderness. No costovertebral tenderness. Full range of motion. Skin: Warm, dry with normal turgor. Normal color with no rashes, no lesions, and no evidence of cellulitis. MS/ Extremity: Pulses equal, no cyanosis. Neurovascular intact. Full, normal range of motion. Neuro: Awake and alert, GCS 15, oriented to person, place, time, and situation. Cranial nerves II-XII grossly intact. Motor strength 5/5 in all extremities. Sensory grossly intact. Cerebellar exam normal. Normal gait. 16:45 Constitutional: The patient appears alert, awake. Vital Signs: 11:33 BP 127 / 89; Pulse 90; Resp 18 S; Temp 98.4(TE); Pulse Ox 98% on R/A; Weight 63.5 kg aa5 (R); Height 5 ft. 4 in. (162.56 cm) (R); Pain 0/10; 13:48 BP 122 / 88; Pulse 80; Resp 16; Temp 98.4; Pulse Ox 99% on R/A; Pain 0/10; ls4 11:33 Body Mass Index 24.03 (63.50 kg, 162.56 cm) aa5 MDM: 11:56 Patient medically screened. gs 16:45 Differential diagnosis: gastritis, pancreatitis, gastroenteritis. Data reviewed: vital gs signs, nurses notes, lab test result(s). Counseling: I had a detailed discussion with the patient and/or guardian regarding: the historical points, exam findings, and any diagnostic results supporting the discharge/admit diagnosis, lab results, the need for outpatient follow up. Response to treatment: the patient's symptoms have markedly improved after treatment, the patient's symptoms have resolved after treatment, patient is well hydrated. and as a result, I will discharge patient. 11/09 11:57 Order name: Basic Metabolic Panel; Complete Time: 14:27 11/09 11:57 Order name: CBC with Diff; Complete Time: 13:13 11/09 11:57 Order name: Hepatic Function; Complete Time: 14:27 11/09 11:57 Order name: Lipase; Complete Time: 14:27 11/09 12:35 Order name: CBC Smear Scan; Complete Time: 13:13 [facility] 11/09 11:57 Order name: IV Saline Lock; Complete Time: 12:30 11/09 11:57 Order name: Labs collected and sent; Complete Time: 12:30 11/09 12:34 Order name: Misc. Order: recollect labs; Complete Time: 13:39 ss Administered Medications: 12:10 Drug: Zofran 4 mg Route: IVP; Site: left wrist; ls4 12:40 Follow up: Response: No adverse reaction; Marked relief of symptoms ls4 13:45 Follow up: Response: No adverse reaction; Marked relief of symptoms ls4 12:10 Drug: NS 0.9% 1000 ml Route: IV; Rate: 1 bolus; Site: left wrist; ls4 13:30 Follow up: IV Status: Completed infusion; IV Intake: 1000ml ls4 14:16 Drug: NS 0.9% 1000 ml Route: IV; Rate: 1 bolus; Site: left wrist; ls4 15:20 Follow up: IV Status: Completed infusion; IV Intake: 1000ml ls4 Disposition: 11/09/18 14:30 Discharged to Home. Impression: Vomiting, Dehydration. - Condition is Stable. - Discharge Instructions: Dehydration, Adult, Nausea and Vomiting, Adult. - Prescriptions for Zofran 4 mg Oral Tablet - take 1 tablet by ORAL route every 12 hours As needed; 10 tablet. - Medication Reconciliation Form, Thank You Letter, Antibiotic Education, Prescription Opioid Use form. - Follow up: Private Physician; When: 2 - 3 days; Reason: Re-evaluation by your physician. Signatures: Dispatcher [employer] Mehnaz Mcmahan RN RN aa5 Nannette Odell RN RN ss Alfred Farrell MD MD Naheed Jack RN RN ls4 Corrections: (The following items were deleted from the chart) 15:20 14:30 11/09/2018 14:30 Discharged to Home. Impression: Vomiting; Dehydration. Condition ls4 is Stable. Forms are Medication Reconciliation Form, Thank You Letter, Antibiotic Education, Prescription Opioid Use. Follow up: Private Physician; When: 2 - 3 days; Reason: Re-evaluation by your physician. gs
--- NOTE | 2018-11-09 14:31 | ER ---
Nurse's Notes [facility] Name: Bruno Napoles JR. Age: 52 yrs Sex: Male : 1965 Arrival Date: 11/09/2018 Time: 11:00 Bed 15 Private MD: None, None Diagnosis: Vomiting;Dehydration Presentation: 11/09 11:30 Presenting complaint: Patient states: vomiting that began yesterday. Denies abd pain, aa5 denies diarrhea. 11:30 Transition of care: patient was not received from another setting of care. Onset of aa5 symptoms was October 2018. Risk Assessment: Do you want to hurt yourself or someone else? Patient reports no desire to harm self or others. Care prior to arrival: None. 11:30 Method Of Arrival: Ambulatory aa5 11:30 Acuity: SHEA 3 aa5 13:34 Initial Sepsis Screen: Does the patient meet any 2 criteria? No. Patient's initial ls4 sepsis screen is negative. Does the patient have a suspected source of infection? No. Patient's initial sepsis screen is negative. Triage Assessment: 13:24 General: Appears uncomfortable. General: Behavior is calm, cooperative. Pain: Denies ls4 pain. GI: Reports vomiting. Historical: - Allergies: 11:33 No Known Allergies; aa5 - PMHx: 11:33 None; aa5 - PSHx: 11:33 Right foot; aa5 - Immunization history:: Flu vaccine is not up to date. - Social history:: Smoking status: Patient/guardian denies using tobacco. - Ebola Screening: : No symptoms or risks identified at this time. Screenin:50 Abuse screen: Denies threats or abuse. Denies injuries from another. ls4 11:50 Nutritional screening: No deficits noted. Tuberculosis screening: No symptoms or risk ls4 factors identified. Fall Risk None identified. Assessment: 13:25 Neuro: No deficits noted. Cardiovascular: No deficits noted. Respiratory: No deficits ls4 noted. GI: Abdomen is flat, non-distended. Derm: Skin is intact, Skin is dry, Skin is pink, warm \T\ dry. 14:13 Reassessment: Patient appears in no apparent distress at this time. Patient and/or ls4 family updated on plan of care and expected duration. Pain level reassessed. Patient is alert, oriented x 3, equal unlabored respirations, skin warm/dry/pink. Vital Signs: 11:33 BP 127 / 89; Pulse 90; Resp 18 S; Temp 98.4(TE); Pulse Ox 98% on R/A; Weight 63.5 kg aa5 (R); Height 5 ft. 4 in. (162.56 cm) (R); Pain 0/10; 13:48 BP 122 / 88; Pulse 80; Resp 16; Temp 98.4; Pulse Ox 99% on R/A; Pain 0/10; ls4 11:33 Body Mass Index 24.03 (63.50 kg, 162.56 cm) aa5 ED Course: 11:00 Patient arrived in ED. mr 11:01 None, None is Private Physician. mr 11:32 Triage completed. aa5 11:32 Arm band placed on. aa5 11:49 Alfred Farrell MD is Attending Physician. gs 11:50 Patient has correct armband on for positive identification. Bed in low position. Side ls4 rails up X 1. Adult w/ patient. Pulse ox on. NIBP on. Warm blanket given. Verbal reassurance given. 11:50 No provider procedures requiring assistance completed. Inserted saline lock: 20 gauge ls4 in left wrist, using aseptic technique. Blood collected. 12:01 Naheed Jack, RN is Primary Nurse. ls4 Administered Medications: 12:10 Drug: Zofran 4 mg Route: IVP; Site: left wrist; ls4 12:40 Follow up: Response: No adverse reaction; Marked relief of symptoms ls4 13:45 Follow up: Response: No adverse reaction; Marked relief of symptoms ls4 12:10 Drug: NS 0.9% 1000 ml Route: IV; Rate: 1 bolus; Site: left wrist; ls4 13:30 Follow up: IV Status: Completed infusion; IV Intake: 1000ml ls4 14:16 Drug: NS 0.9% 1000 ml Route: IV; Rate: 1 bolus; Site: left wrist; ls4 15:20 Follow up: IV Status: Completed infusion; IV Intake: 1000ml ls4 Intake: 13:30 IV: 1000ml; Total: 1000ml. ls4 15:20 IV: 1000ml; Total: 2000ml. ls4 Outcome: 14:30 Discharge ordered by . gs 15:20 Patient left the ED. ls4 Signatures: Apolonia Bermudez Audri, RN RN aa5 Alfred Farrell MD MD Naheed Jack RN RN ls4
[2018-11-09] MEDS ORDERED: ONDANSETRON 4 MG (ODT) TAB ONE (16:08)
== END 2018-11-09 15:20 | disposition home or self-care (01) ==
LOC: ER 10:59
DX: R11.10 Vomiting, unspecified (principal); E86.0 Dehydration
CPT/HCPCS: 36415; 80048; 80076; 83690; 85025; J2405; J7030